=== PATIENT | female | born 1955 | race Caucasian/White ===

== ENCOUNTER → 2017-01-19 | Outpatient (CLI) | payer OTHER ==
--- NOTE | 2017-01-19 16:02 | RAD ---
Exam performed:: Pain left hip. Patient was performed and source one year ago, bilateral hip replacement. The left hip for 6 weeks. Date of service: 01/19/17. Comparison: None available Findings: Single AP view pelvis and frog leg lateral view left hip demonstrate status post total bilateral hip arthroplasties. No evidence of hardware loosening is seen. There is no fracture. Status post left sacral plasty. Nonspecific bowel gas pattern. AP, lateral and coned view of the sacrococcygeal spine are obtained. Status post total bilateral hip arthroplasties and left sacral plasty. Angulation at the lower sacral spine. No acute displaced fracture is seen. Nonspecific bowel gas pattern. Impression: Angulation in the sacrococcygeal spine may be related to remote previous injury, however correlate with clinical findings and if indicated MRI of the sacrococcygeal spine may be obtained
== END | disposition home or self-care (01) ==
LOC: DXRADRC 15:31
PROVIDERS: ATTEND Physician Assistant Medical
DX: M25.552 Pain in left hip (principal); V80.010A Animal-rider injured by fall from or being thrown from horse in noncollision accident, initial encounter; Z96.643 Presence of artificial hip joint, bilateral; X58.XXXA Exposure to other specified factors, initial encounter; Y93.52 Activity, horseback riding; Y92.89 Other specified places as the place of occurrence of the external cause; Y99.8 Other external cause status
CPT/HCPCS: 72220; 73501

== ENCOUNTER → 2017-03-02 | Outpatient (CLI) | payer OTHER ==
--- NOTE | 2017-03-02 11:43 | RAD ---
Exam performed: Right foot 3 views. Clinical Indication: Right foot pain, no known injury. Date of Service:03/02/17. Comparison :X-ray right foot from 08/05/15 Findings: PA, oblique and lateral radiographs of the foot reveal the osseous structures to be intact and well aligned. The joint spaces are well preserved and the articular margins are smooth. Mild diffuse soft tissue swelling is noted Impression: Soft tissue swelling without underlying bony abnormality in the right foot.
== END | disposition home or self-care (01) ==
LOC: DXRADRC 11:22
PROVIDERS: ATTEND Physician Assistant Medical
DX: M25.441 Effusion, right hand (principal); M79.671 Pain in right foot
CPT/HCPCS: 73630

== ENCOUNTER → 2017-03-02 | Outpatient (CLI) | payer OTHER ==
--- NOTE | 2017-03-02 15:21 | RAD ---
DATE: 03/02/17 EXAM: Digital 2-D Screening mammogram HISTORY: Routine screening COMPARISON: 05/09/15 This study was interpreted with the benefit of Computerized Aided Detection (CAD). TECHNIQUE: 2-D and 3-D screening mammograms of both breasts are obtained in CC and MLO projection FINDINGS: Breast Density: HETERO The breast parenchyma is heterogenously dense, which could reduce sensitivity of mammography. Breast parenchyma level C.. No suspicious clustered microcalcifications, focal asymmetric densities or masses are seen. Occasional punctate benign calcifications are seen. There is a biopsy clip in the right breast IMPRESSION: Benign findings BI-RADS CATEGORY: 2 BENIGN FINDING(S) RECOMMENDED FOLLOW-UP: 12M 12 MONTH FOLLOW-UP PQRS compliance statement: Patient information was entered into a reminder system with a target due date for the next mammogram. Mammography is a sensitive method for finding small breast cancers, but it does not detect them all and is not a substitute for careful clinical examination. A negative mammogram does not negate a clinically suspicious finding and should not result in delay in biopsying a clinically suspicious abnormality. "Our facility is accredited by the [employer] Mammography Program."
== END | disposition home or self-care (01) ==
LOC: MAMMO 13:31
PROVIDERS: ATTEND Physician Assistant Medical
DX: Z12.31 Encounter for screening mammogram for malignant neoplasm of breast (principal)
CPT/HCPCS: G0202; 77067

== ENCOUNTER → 2018-03-10 | Outpatient (CLI) | payer OTHER ==
--- NOTE | 2018-03-10 15:06 | RAD ---
DATE: 03/10/2018 EXAM: MAMMO SUBHA SCREENING BILATERAL HISTORY: Routine screening COMPARISON: 03/02/2017 This study was interpreted with the benefit of Computerized Aided Detection (CAD). Breast Density: HETERO The breast parenchyma is heterogenously dense, which could reduce sensitivity of mammography. Breast parenchyma level C. FINDINGS: 2-D and 3-D tomosynthesis imaging was performed in CC and MLO projections. The breasts are heterogeneous in a nodular pattern. No spiculated mass or architectural distortion is seen. An old biopsy marker is present posteriorly in the right breast. Benign type calcifications are present. No suspicious microcalcifications have developed. IMPRESSION: There is no mammographic evidence of malignancy in either breast. BI-RADS CATEGORY: 2 BENIGN FINDING(S) RECOMMENDED FOLLOW-UP: 12M 12 MONTH FOLLOW-UP PQRS compliance statement: Patient information was entered into a reminder system with a target due date for the next mammogram. Mammography is a sensitive method for finding small breast cancers, but it does not detect them all and is not a substitute for careful clinical examination. A negative mammogram does not negate a clinically suspicious finding and should not result in delay in biopsying a clinically suspicious abnormality. "Our facility is accredited by the [employer] Mammography [employer]."
== END | disposition home or self-care (01) ==
LOC: MAMMO 13:43
PROVIDERS: ATTEND Physician Assistant Medical
DX: Z12.31 Encounter for screening mammogram for malignant neoplasm of breast (principal)
CPT/HCPCS: 77063; 77067

== ENCOUNTER → 2019-03-13 | Outpatient (CLI) | payer OTHER ==
--- NOTE | 2019-03-15 11:24 | RAD ---
DATE: 03/13/2019. EXAM: Bilateral digital screening mammography. HISTORY: Routine mammographic screening. COMPARISON: 03/10/2018. This study was interpreted with the benefit of Computerized Aided Detection (CAD). FINDINGS: Breast Density: DENSE The breast parenchyma is dense, which could reduce the sensitivity of mammography. Breast parenchyma level density D.. Scattered calcifications are benign. A nodule slightly laterally on the right has stable correlates on the prior study. There are no suspicious masses, microcalcifications or architectural distortion. The parenchymal pattern is stable. BI-RADS CATEGORY: 2 BENIGN FINDING(S). RECOMMENDED FOLLOW-UP: 12M 12 MONTH FOLLOW-UP. PQRS compliance statement: Patient information was entered into a reminder system with a target due date 03/13/2020 for the next mammogram. Mammography is a sensitive method for finding small breast cancers, but it does not detect them all and is not a substitute for careful clinical examination. A negative mammogram does not negate a clinically suspicious finding and should not result in delay in biopsying a clinically suspicious abnormality. "Our facility is accredited by the [employer] Mammography Program."
== END | disposition home or self-care (01) ==
LOC: MAMMO 15:01
PROVIDERS: ATTEND Physician Assistant Medical
DX: Z12.31 Encounter for screening mammogram for malignant neoplasm of breast (principal); N64.89 Other specified disorders of breast
CPT/HCPCS: 77063; 77067

== ENCOUNTER → 2019-03-28 | Outpatient (CLI) | payer OTHER ==
--- NOTE | 2019-03-28 13:24 | RAD ---
EXAM: Chest, 2 views HISTORY: Chest pain. COMPARISON: None. FINDINGS: 2 views of the chest are obtained. There is no infiltrate, pleural effusion or pneumothorax. The heart is normal in size. There is cervical spinal fusion instrumentation. There are cholecystectomy clips. IMPRESSION: No acute pulmonary finding. Electronically signed by: Kaity West MD (03/28/2019 1:21 PM) [facility]
== END | disposition home or self-care (01) ==
LOC: DXRAD 11:19
PROVIDERS: ATTEND Physician Assistant Medical
DX: R07.9 Chest pain, unspecified (principal); Z90.49 Acquired absence of other specified parts of digestive tract; Z98.1 Arthrodesis status
CPT/HCPCS: 71046

== ENCOUNTER → 2020-01-24 | Outpatient (CLI) | payer MEDICARE, OTHER ==
--- NOTE | 2020-01-24 13:45 | RAD ---
Examination: Ultrasound pelvis HISTORY: History of postmenopausal bleeding COMPARISON: 07/25/2015 FINDINGS: The uterus measures 9.3 x 5.3 x 4.0 cm. Endometrium is 4 mm in thickness. Calcifications identified in the endometrium. There is a 2.2 cm echogenicity identified in the posterior wall of the uterus probably fibroid. The uterus appears somewhat heterogeneous. The right ovary measures 1.8 x 1.1 1.3 cm. The left ovary measures 1.7 x 1.4 x 1.0 cm. Blood flow identified in the right and left ovaries. IMPRESSION: 1. 2.2 cm fibroid in the posterior wall of the uterus. Electronically signed by: Perez Balderas MD (01/24/2020 1:42 PM) [id number]
== END | disposition home or self-care (01) ==
LOC: US 10:38
PROVIDERS: ATTEND Physician Assistant Medical
DX: N95.0 Postmenopausal bleeding (principal); D25.9 Leiomyoma of uterus, unspecified; N85.8 Other specified noninflammatory disorders of uterus
CPT/HCPCS: 76830; 76856

== ENCOUNTER → 2020-03-20 | Outpatient (CLI) | payer MEDICARE, OTHER ==
--- NOTE | 2020-03-20 17:35 | RAD ---
BILATERAL SCREENING MAMMOGRAM, 3-D History: Routine screening. Comparison: 05/09/2015, 03/02/2017, 03/10/2018, 03/13/2019. Technique: MLO and CC digital tomosynthesis (3D) images obtained. Radiologist reviewed these images on dedicated workstation. Findings: Breast Tissue Density D :The breasts are extremely dense, which lowers the sensitivity of mammography. At the left inner breast at the lower aspect on tomographic images, distortion is evident. This finding is not definitely delineated on the left CC image. This appears to have a corresponding finding on 03/10/2018 without significant change but is not evident on older tomographic images. Distortion involving the left MLO images is not definitely seen. The distortion on the CC tomographic images is located 4.5 cm from the nipple. Benign-appearing calcifications are present. No suspicious findings of the right breast. Biopsy clip marker at the posterior retroareolar region of the right breast is present. IMPRESSION: Left breast distortion. Further evaluation with ultrasound imaging of the left lower inner breast at approximately the 7:00 to 8:00 region is recommended. Spot compression imaging may be needed. BI-RADS Category 0: Incomplete: Need additional imaging evaluation. The images were reviewed with computer-aided detection. Patient information is entered into reminder system with a target due date for the next screening mammogram. Mammography is the most sensitive method for finding small breast cancers, but it does not detect them all and is not a substitute for careful clinical examination. A negative mammogram does not negate a clinically suspicious finding and should not result in delay in biopsying a clinically suspicious abnormality. "Our facility is accredited by the [employer] Mammography Program." Electronically signed by: Kavin Carson MD (03/20/2020 5:32 PM) [facility]
== END ==
LOC: MAMMO 11:39
PROVIDERS: ATTEND Physician Assistant Medical
DX: Z12.31 Encounter for screening mammogram for malignant neoplasm of breast (principal); N64.89 Other specified disorders of breast
CPT/HCPCS: 77063; 77067

== ENCOUNTER → 2020-04-04 | Outpatient (CLI) | payer MEDICARE, OTHER ==
--- NOTE | 2020-04-05 09:02 | RAD ---
Examination: 1. Left digital diagnostic mammogram. 2. Limited left breast ultrasound. INDICATION: 64-year-old woman recalled from screening for architectural distortion in the lower inner quadrant left breast. COMPARISON: Bilateral mammogram of 03/20/2020, screening TECHNIQUE: Additional views of the left breast with spot compression left 2-D CC view and full field left ML view were obtained. The left full-field images were obtained with 3-D technique. Thereafter, targeted ultrasound of the left breast in the lower inner quadrant and in the superior aspect were obtained. FINDINGS: Additional views left breast showed hetereogeneously dense breast parenchyma with persistence of distortion in the medial anterior left breast on spot compression as well as a possible additional area of distortion superiorly. Both of these areas were targeted for additional imaging by ultrasound. Targeted ultrasound of the lower inner quadrant left breast identified an antiparallel irregular hypoechoic spiculated 9 mm mass at the 8:00 position 5 cm from nipple that corresponds with the area of distortion identified on screening mammography. In addition, a second antiparallel, irregular hypoechoic 9 mm mass is identified on ultrasound at the 12:00 position 4 cm from the nipple. Adjacent to it is a 4 mm round hypoechoic mass with posterior acoustic enhancement but irregular margins. This is also mildly suspicious but is sufficiently close to the lesion at the 12:00 position 4 cm from the nipple as to be amenable to concurrent attempt at aspiration. Both of these findings are suspicious for malignancy and are recommended for biopsy. Sonographic survey of the left axilla revealed no adenopathy. There is an incidental 1.7 cm simple cyst at the 6:00 position 4 cm from the nipple. IMPRESSION: Suspicious 9mm masses in the left breast at the 8:00 position 5 cm from the nipple and at the 12:00 position 4 cm from the nipple. Biopsy recommended. A 4 mm suspicious nodule at the 12:00 position 2 cm from the nipple is recommended for attempted aspiration and possible biopsy. BI-RADS Category 5 Findings highly suggestive of malignancy Biopsy should be considered. Report telephoned to patient's referring provider Tosin Aguilar's office where Kaity took the report on her behalf at 8:59 AM on 04/05/2020. Electronically signed by: Jesusita Gillespie MD (04/05/2020 8:59 AM) [id number]
== END ==
LOC: MAMMO 13:44
PROVIDERS: ATTEND Physician Assistant Medical
DX: R92.2 Inconclusive mammogram (principal); N63.22 Unspecified lump in the left breast, upper inner quadrant
CPT/HCPCS: 76641; 77065

== ENCOUNTER → 2021-10-17 | Outpatient (CLI) | payer MEDICARE, OTHER ==
--- NOTE | 2021-10-17 16:33 | RAD ---
XR SHOULDER 2+ VIEWS BILAT History: Reason: CHRONIC BILATERAL KNEE AND SHOULDER PAIN / Spl. Instructions: / History: Technique: 3 views bilateral shoulders. Comparison: None. Findings: Left shoulder: Moderate left glenohumeral degenerative changes with large inferior osteophyte and lainey nt space narrowing as well as sclerosis. No dislocation. Mild acromioclavicular DJD. Postop changes c ervical spine. Postop changes left axilla. Right shoulder: Moderate right glenohumeral degenerative changes with inferior osteophyte formation a nd sclerosis. Mild acromioclavicular degenerative changes. Impression: 1. Moderate bilateral glenohumeral DJD, left greater than right. Electronically signed by: Capo Hwang DO (10/17/2021 4:30 PM) [id number]
--- NOTE | 2021-10-17 16:34 | RAD ---
XR KNEE 3 VIEWS History: Reason: CHRONIC BILAT. SHOULDER KNEE PAIN / Spl. Instructions: / History: Technique: 3 views bilateral knees. Comparison: None. Findings: Left knee: Moderate left knee degenerative changes with joint space narrowing marginal osteophyte for mation. Small knee joint effusion. No dislocation. No acute fracture. Right knee: Moderate knee degenerative changes with joint space narrowing and marginal osteophyte for mation. Chondrocalcinosis. No dislocation. No acute fracture. Impression: 1. Moderate bilateral knee DJD. Electronically signed by: Capo Hwang DO (10/17/2021 4:32 PM) [id number]
== END ==
LOC: RAD 12:00
PROVIDERS: ATTEND Physician Assistant Medical
DX: M17.0 Bilateral primary osteoarthritis of knee (principal); M19.012 Primary osteoarthritis, left shoulder; M19.011 Primary osteoarthritis, right shoulder; M25.712 Osteophyte, left shoulder; M25.711 Osteophyte, right shoulder; M25.811 Other specified joint disorders, right shoulder; M25.812 Other specified joint disorders, left shoulder; M25.861 Other specified joint disorders, right knee; M25.862 Other specified joint disorders, left knee
CPT/HCPCS: 73030-50; 73562-50